=== PATIENT | female | born 1985 | race Caucasian/White ===

== ENCOUNTER 2018-01-27 09:38 | Emergency (ER) | payer MEDICAID ==
[~2018-01-27] VITALS: Ht 157.5 cm; Wt 63.6 kg
[2018-01-27 09:46] VITALS: Ht 157.5 cm; Wt 63.6 kg
[2018-01-27] MEDS ORDERED: EC-NAPROSYN500 MG PO (10:34)
[2018-01-27] MEDS ORDERED: CLEOCIN HCL300 MG PO (10:34)
[2018-01-27 11:07] VITALS: BP 122/64
== END 2018-01-27 11:08 | disposition home or self-care (01) ==
LOC: D.ER 09:38
DX: K08.89 Other specified disorders of teeth and supporting structures (principal)